=== PATIENT | male | born 1990 | race Caucasian/White ===

== ENCOUNTER 2020-09-13 11:42 | Emergency (ER) | payer MEDICAID ==
[~2020-09-13] VITALS: Ht 172.7 cm; Wt 99.8 kg
--- NOTE | 2020-09-13 11:49 | NUR ---
PT [facility] FROM FACILITY. MADE AWARE.
[2020-09-13 11:50] VITALS: BP 124/59
== END 2020-09-13 11:49 | disposition left against medical advice (07) ==
LOC: MED 11:42
DX: R41.82 Altered mental status, unspecified (principal); Z53.21 Procedure and treatment not carried out due to patient leaving prior to being seen by health care provider